=== PATIENT | female | born 1960 | race African-American/Black ===

== ENCOUNTER 2018-03-25 08:05 | Emergency (ER) | payer OTHER ==
[~2018-03-25] VITALS: Ht 162.6 cm; Wt 80.7 kg
[~2018-03-25 08:05] MED LIST: CYCLOBENZAPRINE5 MG PO; IBUPROFEN 600600 M1 PO; IBUPROFEN 800800 M1 PO; NOHOMEMEDICATIONS; NORCO 5-325 TA1 EACH PO
[2018-03-25] MEDS ORDERED: ACYCLOVIR 200200 MG PO (08:24)
[2018-03-25 08:51] LABS: URINE BILIRUBIN NEGATIVE (Negative); URINE BLOOD TRACE (Negative); URINE CLARITY CLEAR; URINE COLOR YELLOW; URINE GLUCOSE-RANDOM* NEGATIVE (Negative); URINE KETONES NEGATIVE (Negative); URINE LEUKOCYTES NEGATIVE (Negative); URINE NITRITE NEGATIVE (Negative); URINE PROTEIN (DIPSTICK) NEGATIVE (Negative); URINE UROBILINOGEN 0.2 E.U./dl (0.2-1.0)
[2018-03-25 09:41] LABS: ABSOLUTE NEUTROPHILS 2.8 thou/uL (1.4-8.2); BASOPHILS 0.4 % (0.0-2.0); HEMATOCRIT 41.1 % (37.0-47.0); HEMOGLOBIN 13.8 gm/dL (12.0-15.0); LYMPHOCYTES 38.1 % (24.0-44.0); MCH 29.9 pg (26.0-34.0); MCHC 33.6 g/dL (28.0-37.0); MCV 89.2 fL (80.0-100.0); MONOCYTES 7.7 % (1.0-8.0); PLATELET COUNT 214 thou/uL (150-400); POLYS 51.8 % (36.0-66.0); RBC 4.61 mil/uL (4.20-5.00); RDW 13.9 % (10.5-14.5); WBC 5.3 thou/uL (4.0-11.0)
[2018-03-25 09:59] LABS: ANION GAP 8 mmol/L (7-16); BUN 17 mg/dL (7-18); CALCIUM 9.7 mg/dL (8.5-10.1); CHLORIDE 107 mmol/L (98-107); CO2 26 mmol/L (21-32); CREATININE 0.9 mg/dL (0.6-1.0); GLUCOSE 90 mg/dL (74-106); SODIUM 141 mmol/L (136-145)
[2018-03-25 10:04] LABS: ALBUMIN 3.9 g/dL (3.4-5.0); DIRECT BILIRUBIN < 0.1 mg/dL (<0.1-0.3); LIPASE 326 U/L (73-393); SGOT 18 U/L (15-37); SGPT 23 U/L (30-65); TOTAL BILIRUBIN 0.3 mg/dL (<0.1-1.0); TOTAL PROTEIN 7.7 g/dL (6.4-8.2)
[2018-03-25] MEDS ORDERED: ZOFRAN ODT4 MG DISSOLVE (10:30)
[2018-03-25] MEDS ORDERED: NORCO 5-325 TA1 EACH PO (10:30)
[2018-03-25 10:49] VITALS: BP 98/76
== END 2018-03-25 10:50 | disposition home or self-care (01) ==
LOC: ER 08:05
PROVIDERS: Emergency Medicine
DX: K80.50 Calculus of bile duct without cholangitis or cholecystitis without obstruction (principal); I10 Essential (primary) hypertension